=== PATIENT | female | born 1985 | race Caucasian/White ===

== ENCOUNTER 2019-08-05 10:42 | Outpatient (CLI) | payer OTHER | END 2019-08-05 11:39 | disposition home or self-care (01) | LOC: NST 10:42 | DX: Z34.83 Encounter for supervision of other normal pregnancy, third trimester (principal) ==

== ENCOUNTER 2019-08-20 10:15 | Outpatient (CLI) | payer OTHER | END 2019-08-20 11:07 | disposition home or self-care (01) | LOC: NST 10:15 | DX: Z34.83 Encounter for supervision of other normal pregnancy, third trimester (principal) ==

== ENCOUNTER 2019-09-03 11:50 | Inpatient (IN) | payer OTHER ==
[~2019-09-03] VITALS: Ht 152.4 cm; Wt 73.9 kg
[2019-10-04] MEDS ORDERED: PRENATAL TABLE1 EAC1 PO (22:16)
[2019-10-04] MEDS ORDERED: PROBIOTIC1 EAC2 PO (22:17)
== END 2019-10-07 20:19 | disposition home or self-care (01) | DRG 807 ==
LOC: LDR 10-04 22:04 → OB/GYN 10-05 14:45
PROVIDERS: ADMIT Obstetrics & Gynecology
PROC: 10E0XZZ Delivery of Products of Conception, External Approach (ICD-10-PCS; principal; 2019-10-04)
PROC: 0KQM0ZZ Repair Perineum Muscle, Open Approach (ICD-10-PCS; 2019-10-04)
PROC: 3E033VJ Introduction of Other Hormone into Peripheral Vein, Percutaneous Approach (ICD-10-PCS; 2019-10-04)
PROC: 4A1HXCZ Monitoring of Products of Conception, Cardiac Rate, External Approach (ICD-10-PCS; 2019-10-04)
DX: O70.1 Second degree perineal laceration during delivery (principal); Z37.0 Single live birth; Z3A.40 40 weeks gestation of pregnancy

== ENCOUNTER 2019-10-01 14:39 | Outpatient (CLI) | payer OTHER | END 2019-10-01 15:50 | disposition home or self-care (01) | LOC: NST 14:39 | DX: Z34.83 Encounter for supervision of other normal pregnancy, third trimester (principal) ==

== ENCOUNTER 2019-10-04 09:21 | Outpatient (CLI) | payer OTHER ==
[2019-10-04] MEDS ORDERED: PRENATAL TABLE1 EAC1 PO (22:16)
[2019-10-04] MEDS ORDERED: PROBIOTIC1 EAC2 PO (22:17)
== END 2019-10-04 11:13 | disposition home or self-care (01) ==
LOC: OBS/DEL 09:21
DX: O47.1 False labor at or after 37 completed weeks of gestation (principal)